=== PATIENT | female | born 1990 | race Two or more races ===

== ENCOUNTER 2025-07-02 23:08 | Emergency (ER) | payer BC, OTHER ==
[~2025-07-02] VITALS: Ht 157.5 cm; Wt 105.4 kg
[2025-07-03 00:15] LABS: Hematocrit 38.6 % (36.0-46.0); Hemoglobin 13.5 g/dL (12.2-16.2); Mean Corpuscular Hemoglobin 30.9 pg (28.0-32.0); Mean Corpuscular Volume 88.1 fL (80.0-100.0); Nucleated Red Blood Cells % 0.0 %
[2025-07-03 00:24] LABS: Chloride 103 mmol/L (98-107); Potassium 3.8 mmol/L (3.5-5.1); Sodium 138 mmol/L (136-145)
[2025-07-03 00:25] LABS: Anion Gap 11 (5-15); Calcium 9.4 mg/dL (8.7-10.4); Carbon Dioxide 24 mmol/L (20-31)
[2025-07-03 00:38] LABS: BUN/Creatinine Ratio 7.5 (10.0-20.0); Blood Urea Nitrogen < 5 mg/dL (9-23); Glucose 166 mg/dL (74-106)
--- NOTE | 2025-07-03 01:29 | DVH ---
OB ULTRASOUND <14 WEEKS: HISTORY: abd pain early TECHNIQUE: Multiple real-time grayscale sonographic images of the pelvis with duplex Doppler color f low, spectral and M-mode analysis. COMPARISON: US OB TRANS VAGINAL US on DOS: 07/03/25 FINDINGS: The uterus measures 8.5 x 7.2 x 4.3 cm The cervix is unremarkable Right ovary measures 3.4 x 1.9 x 2.6 cm with normal Doppler color flow. Left ovary measures 3.1 x 2.5 x 2.8 cm with normal Doppler color flow. Left ovarian cyst/ follicle me asuring 1.8 cm. IUP single fetus that is below accurate measurements of age with gestational sac measuring 0.71 cm. pole not yet seen. Yolk sac not seen. Silvia-gestational space: None. IMPRESSION: Gestational sac with no pole or yolk sac yet seen. Recommend correlation with beta-hCG and follow-up sonography as clinically indicated. No acute abnormality detected.
--- NOTE | 2025-07-03 02:11 | ED.PDOC ---
History of Present Illness HPI Comments 35 y/o F presents with spouse for c/c of left flank pain, with associated, for the past 2x days. Patient is 5x weeks . She endorses on sudden, unprovoked, and atraumatic onset of waning, constant pain. Denies any vomiting, diarrhea, constipation, or further associated symptoms. Chief Complaint: Flank Pain Time Seen by MD: 01:45 Reviewed Notes: Nurses Notes, Medications, Allergies Home Meds Active Scripts Cefdinir (Cefdinir) 300 Mg Cap, 1 CAP PO BID for 10 Days, #20 CAP Prov:KYLEE ANN MD 07/03/25 Information Source: Patient Mode of Arrival: Ambulatory Severity: Moderate Timing: Hours Duration: Since onset Prehospital treatment: None Past Medical History PAST MEDICAL HISTORY: Denies All Other Systems: Reviewed and Negative (Comprehensive review of systems are negative unless stated in HPI) Physical Exam General Appearance: Mild Distress, Obese HEENT: Normal ENT Inspection, Pharynx Normal, TMs Normal Neck: Full Range of Motion, Non-Tender, Normal, Normal Inspection Respiratory: Chest Non-Tender, Lungs Clear, No Accessory Muscle Use, No Respiratory Distress, Normal Breath Sounds Cardiovascular: No Edema, No JVD, No Murmur, No Gallop, Normal Peripheral Pulses, Regular Rate/Rhythm Breast Exam: Deferred Gastrointestinal: No Organomegaly, Non Tender, No Pulsatile Mass, Normal Bowel Sounds, Soft Genitalia: Deferred Pelvic: Deferred Rectal: Deferred Extremities: No calf tenderness, Normal capillary refill, Normal inspection, Normal range of motion, Non-tender, No pedal edema Musculoskeletal : Location: Left Extremity Location: Other (CVA) Apperance: Normal, Tenderness Neurologic: Alert, personal care service provider II-XII nml as Tested, No Motor Deficits, Normal Affect, Normal Mood, No Sensory Deficits Cerebellar Function: Normal Reflexes: Normal Skin: Dry, Normal Color, Warm Lymphatic: No Adenopathy Was a procedure done? Was a procedure done?: No Differential Dx Considerations may include: nephrolithiasis, pyelonephritis, cystitis, musculoskeletal pain, PID, ovarian cysts/torsion, among others X-Ray, Labs, Meds, VS Vital Signs Date Time Temp Pulse Resp B/P (MAP) Pulse Ox O2 Delivery O2 Flow Rate FiO2 07/02/25 23:20 100.1 127 20 119/60 97 100.1 Lab Test 07/03/25 03:00 07/02/25 23:57 Range/Units Urine Color Yellow Yellow Urine Clarity Clear Clear Urine pH 6.0 5.0-9.0 Urine Specific [place] 1.027 1.001-1.035 Urine Protein Trace H Negative Urine Ketones Trace Negative Urine Blood Negative Negative /uL Urine Nitrite Negative Negative Urine Bilirubin Negative Negative Urine Urobilinogen 2 H Negative mg/dL Urine Leukocyte Esterase Negative Negative /uL Urine RBC None seen 0 - 4 /hpf Urine Microscopic WBC 1 0-5 /HPF Urine Squamous Epithelial Cells Few <5 /hpf Urine Bacteria None seen None Seen /hpf Urine Mucus Few None Seen Urine Glucose Normal Normal mg/dL White Blood Count 18.7 H 4.4-10.8 10^3/uL Red Blood Count 4.39 4.0-5.20 10^6/uL Hemoglobin 13.5 12.2-16.2 g/dL Hematocrit 38.6 36.0-46.0 % Mean Corpuscular Volume 88.1 80.0-100.0 fL Mean Corpuscular Hemoglobin 30.9 28.0-32.0 pg Mean Corpuscular Hemoglobin Concent 35.1 32.0-36.0 g/dL Red Cell Distribution Width 13.1 11.8-14.3 % Platelet Count 330 140-450 10^3/uL Mean Platelet Volume 7.6 6.9-10.8 fL Neutrophils (%) (Auto) 83.5 H 37.0-80.0 % Lymphocytes (%) (Auto) 10.3 10.0-50.0 % Monocytes (%) (Auto) 5.4 0.0-12.0 % Eosinophils (%) (Auto) 0.4 0.0-7.0 % Basophils (%) (Auto) 0.4 0.0-2.0 % Neutrophils # (Auto) 15.6 H 1.6-8.6 10 ^3/uL Lymphocytes # (Auto) 1.9 0.4-5.4 10 ^3/uL Monocytes # (Auto) 1.0 0-1.3 10 ^3/uL Eosinophils # (Auto) 0.1 0-0.8 10 ^3/uL Basophils # (Auto) 0.1 0-0.2 10 ^3/uL Nucleated Red Blood Cells 0.0 % Sodium Level 138 136-145 mmol/L Potassium Level 3.8 3.5-5.1 mmol/L Chloride Level 103 98-107 mmol/L Carbon Dioxide Level 24 20-31 mmol/L Anion Gap 11 5-15 Blood Urea Nitrogen < 5 L 9-23 mg/dL Creatinine 0.67 0.550-1.02 mg/dL Glomerular Filtration Rate Calc 118 >90 mL/min BUN/Creatinine Ratio 7.5 L 10.0-20.0 Serum Glucose 166 H 74-106 mg/dL Calcium Level 9.4 8.7-10.4 mg/dL Beta HCG, Quantitative 3419.6 H 1.5-4.2 mIU/mL [place] [id number] Ph: [phone] DIAGNOSTIC IMAGING Diagnostic Imaging Report : [id number] Signed PATIENT: INGRID MEADE ACCT: [id number] UNIT: [id number] : 1990 LOC: ER ROOM / BED: / AGE / SEX: 35 / F ADM STATUS: REG ER SERVICE [id number] ORDERING PHYSICIAN: KYLEE ANN MD PROCEDURE(s): OB4US - OB ULTRASOUND COMP LESS 14WKS REASON: abd pain early ORDER NUMBER(s): [id number], ACCESSION NUMBER(s): [id number] OB ULTRASOUND <14 WEEKS: HISTORY: abd pain early TECHNIQUE: Multiple real-time grayscale sonographic images of the pelvis with duplex Doppler color flow, spectral and M-mode analysis. COMPARISON: US OB TRANS VAGINAL US on DOS: 07/03/25 FINDINGS: The uterus measures 8.5 x 7.2 x 4.3 cm The cervix is unremarkable Right ovary measures 3.4 x 1.9 x 2.6 cm with normal Doppler color flow. Left ovary measures 3.1 x 2.5 x 2.8 cm with normal Doppler color flow. Left ovarian cyst/ follicle measuring 1.8 cm. IUP single fetus that is below accurate measurements of age with gestational sac measuring 0.71 cm. pole not yet seen. Yolk sac not seen. Silvia-gestational space: None. IMPRESSION: Gestational sac with no pole or yolk sac yet seen. Recommend correlation with beta-hCG and follow-up sonography as clinically indicated. No acute abnormality detected. ATED BY: RAS RAM MD DICTATED DATE/TIME: 07/03/25125 SIGNED BY: RAS RAM MD SIGNED DATE/TIME: 07/03/25125 CC: Time of 1ST Reevaluation: 02:15 Reevaluation 1ST: Unchanged Patient Education/Counseling: Diagnosis, Treatment, Need For Follow Up Family Education/Counseling: Diagnosis, Treatment, Need For Follow Up SEPSIS Sepsis Screen Date sepsis recognized/suspect: Jul 02, 2025 Time Sepsis recognized/suspect: 2321 Recent Procedure: No On Antibiotic Therapy: No Respiratory Rate >20: No Heart Rate >90: No Temp<36 C (96.8 F) or >38.3 C: No SBP <90 or MAP <65 mmHG: No New Acute Mental Status Change: No Is the patient on CPAP, BIPAP,: No Physician Orders Ob Ultrasound Comp Less 14wks (07/03/25 00:56) Ob Trans Vaginal Us (07/03/25 ) Vital Signs Date Time Temp Pulse Resp B/P (MAP) Pulse Ox O2 Delivery O2 Flow Rate FiO2 07/02/25 23:20 100.1 127 20 119/60 97 100.1 Laboratory Tests Test 07/02/25 23:57 White Blood Count 18.7 10^3/uL (4.4-10.8) H Departure 1 Departure Time of Disposition: 04:15 Impression: Primary Impression: Left flank pain Additional Impression: Abdominal pain in early Disposition: 01 HOME / SELF CARE / HOMELESS Condition: Stable e-Prescriptions Cefdinir (Cefdinir) 300 Mg Cap 1 CAP PO BID for 10 Days, #20 CAP Prov: KYLEE ANN MD 07/03/25 Discharged With: Self Critical Care Note Critical Care Time?: No Stability Stability form required: No Heart Score Heart Score: Heart Score Response (Comments) Value History N/A 0 EKG N/A 0 Age N/A 0 Risk Factors N/A 0 Troponin N/A 0 Total 0 I personally scribed for KYLEE ANN MD ([email or web address]) on 07/03/25 at 02:11. Electronically submitted by Arden Kimble ([email or web address]). KYLEE ANN MD Jul 03, 2025 02:11
[2025-07-03 04:19] LABS: Urine Protein, UAD TRACE (Negative)
[2025-07-03] MEDS ORDERED: CEFD300C2 PO (05:08)
[2025-07-03] MEDS ORDERED: cefTRIAXone W LIDOCAINE 1 GM IM IM ONE (05:15)
[2025-07-03] MEDS: cefTRIAXone SOD 1,000 MG VL IM ONE (06:19)
[2025-07-03 06:26] VITALS: BP 143/87; PULSE 105; RESP 18; TEMP 98.7; O2SAT 96
== END 2025-07-03 06:26 | disposition home or self-care (01) ==
LOC: ER 23:08
DX: O26.891 Other specified pregnancy related conditions, first trimester (principal); R10.9 Unspecified abdominal pain; Z3A.01 Less than 8 weeks gestation of pregnancy
CPT/HCPCS: 36415; 76801; 76817; 80048; 81001; 84702; 85025; 96372; 99285; J0696

== ENCOUNTER 2025-09-15 14:00 | Emergency (ER) | payer BC ==
[~2025-09-15] VITALS: Ht 157.5 cm; Wt 110.6 kg
[~2025-09-15 14:00] MED LIST: CEFD300C2 PO
--- NOTE | 2025-09-15 14:45 | ED.PDOC ---
ANALYSIS EVALUATOR HPI Comments 45-year-old female with pmhx of gestational DM and HTN, presents to the ED for chief complaint of vaginal bleeding that started today. Patient reports she is 16 weeks gestation with the ob gyn history of and a miscarriage earlier this year. Patient's last menstrual cycle was on 06/07/2025. Patient states that 2 day while she went to the restroom, she was expelling clumps of blood and states that she bled through her pants multiple times. Chief Complaint: Time Seen by MD: 14:39 Reviewed Notes: Nurses Notes, Medications, Allergies Allergies: Coded Allergies: NO KNOWN ALLERGIES (Unverified , 09/15/25) Home Meds Active Scripts Cefdinir (Cefdinir) 300 Mg Cap, 1 CAP PO BID for 10 Days, #20 CAP Prov:KYLEE ANN MD 07/03/25 Information Source: Patient Mode of Arrival: Ambulatory Timing: Hours Severity: Moderate Bleeding Quality: Bright Red, Clotted, Products of Conception Onset Of Mass/Bleeding: Spontaneous Sexual Activity: Last Consensual [place]: Unknown Control: None History of: Current Associated Signs and Symptoms: Vaginal Bleeding Past Medical History PAST MEDICAL HISTORY: Denies [employer]CHOOL [employer]IA [employer]IST History: Therapeutic Family History Family History: Reviewed,noncontributory to illness, No family hx of Cancer, No family hx of DM, No family hx of Heart kelli, No family hx of HTN, No family hx ofKidney kelli, No family hx of Liver kelli, No family hx of Lung kelli, No family hx of Stroke Social History Smoker: Non-Smoker Alcohol: Denies ETOH Use Drugs: Denies Drug Use Lives In: Home Constitutional: denies: chills, diaphoresis, fatigue, fever, malaise, sweats, weakness, others EENTM: denies: blurred vision, double vision, ear bleeding, ear discharge, ear drainage, ear pain, ear ringing, eye pain, eye redness, hearing loss, mouth pain, mouth swelling, nasal discharge, nose bleeding, nose congestion, nose pain, photophobia, tearing, throat pain, throat swelling, voice changes, others Respiratory: denies: cough, hemoptysis, orthopnea, SOB at rest, shortness of breath, SOB with excertion, stridor, wheezing, others Cardiovascular: denies: chest pain, dizzy spells, diaphoresis, Dyspnea on exertion, edema, irregular heart beat, left arm pain, lightheadedness, palpitations, PND, syncope, others Gastrointestinal: denies: abdomen distended, abdominal pain, blood streaked bowels, constipated, diarrhea, dysphagia, difficulty swallowing, hematemesis, melena, nausea, poor appetite, poor fluid intake, rectal bleeding, rectal pain, vomiting, others Genitourinary: reports: abnormal vagina bleeding; denies: burning, dyspareunia, dysuria, flank pain, frequency, hematuria, incontinence, pain, , vagina discharge, urgency, others Neurological: denies: dizziness, fainting, headache, left sided numbness, left sided weakness, numbness, paresthesia, pre-existing deficit, right sided numbness, right sided weakness, seizure, speech problems, tingling, tremors, weakness, others Musculoskeletal: denies: back pain, gout, joint pain, joint swelling, muscle pain, muscle stiffness, neck pain, others Integumetry: denies: bruises, change in color, change in hair/nails, dryness, laceration, lesions, lumps, rash, wounds, others Allergic/Immunocompromised: denies: Difficulty Healing, Frequent Infections, Hives, Itching, others Hematologic/Lymphatic: denies: anemia, blood clots, easy bleeding, easy bruising, swollen glands, others Endocrine: denies: excessive hunger, excessive sweating, excessive thirst, excessive urination, flushing, intolerance to cold, intolerance to heat, unexplained weight gain, unexplained weight loss, others Psychiatric: denies: anxiety, bipolar disorder, depression, hopeless, panic disorder, schizophrenia, sleepless, suicidal, others All Other Systems: Reviewed and Negative Physical Exam General Appearance: Moderate Distress HEENT: Normal ENT Inspection, Pharynx Normal, TMs Normal Neck: Full Range of Motion, Non-Tender, Normal, Normal Inspection Respiratory: Chest Non-Tender, Lungs Clear, No Accessory Muscle Use, No Respiratory Distress, Normal Breath Sounds Cardiovascular: No Edema, No JVD, No Murmur, No Gallop, Normal Peripheral Pulses, Regular Rate/Rhythm Breast Exam: Deferred Gastrointestinal: No Organomegaly, Non Tender, No Pulsatile Mass, Normal Bowel Sounds, Soft Genitalia: Deferred Pelvic: Deferred Rectal: Deferred Extremities: No calf tenderness, Normal capillary refill, Normal inspection, Normal range of motion, Non-tender, No pedal edema Musculoskeletal : Apperance: Normal Neurologic: Alert, bottom pounder cement shoes II-XII nml as Tested, No Motor Deficits, Normal Affect, Normal Mood, No Sensory Deficits Cerebellar Function: Normal Reflexes: Normal Skin: Dry, Normal Color, Warm Peripheral Pulses: 3+ Radial (R), 3+ Radial (L) Lymphatic: No Adenopathy Was a procedure done? Was a procedure done?: No Differential Diagnosis ([employer]IST) Vaginal Bleeding: - Complete, - Incomplete, - Inevitable, - Missed, - Threatened, Abruptio Placentae, Blood Loss Anemia, Cervicitis, Dysmenorrhea, Ectopic X-Ray, Labs, Meds, VS Vital Signs Date Time Temp Pulse Resp B/P (MAP) Pulse Ox O2 Delivery O2 Flow Rate FiO2 09/15/25 16:25 98.4 94 16 111/61 (78) 99 98.4 09/15/25 14:08 98.3 104 16 133/78 97 98.3 Lab Test 09/15/25 15:31 09/15/25 15:05 Range/Units Urine Color Yellow Yellow Urine Clarity Clear Clear Urine pH 6.0 5.0-9.0 Urine Specific [place] 1.028 1.001-1.035 Urine Protein Trace H Negative Urine Ketones 2+ H Negative Urine Blood Trace H Negative /uL Urine Nitrite Negative Negative Urine Bilirubin Negative Negative Urine Urobilinogen Normal Negative mg/dL Urine Leukocyte Esterase Negative Negative /uL Urine RBC 1 0 - 4 /hpf Urine Microscopic WBC 1 0-5 /HPF Urine Squamous Epithelial Cells Few <5 /hpf Urine Bacteria Few H None Seen /hpf Urine Mucus Few None Seen Urine Glucose Normal Normal mg/dL Beta HCG, Quantitative 32018.3 H 1.5-4.2 mIU/mL Patient alert. Vitals stable. She is . Answering all questions. No sign of any distress. Ultrasound does reveal normal . Told to take her vitamins. Explained to the patient. Was told to follow up with her primary care physician. Was told to come back if there is any problem. Time of 1ST Reevaluation: 14:45 Reevaluation 1ST: Unchanged Patient Education/Counseling: Diagnosis, Treatment, Prognosis Family Education/Counseling: No Family Present Departure 1 Departure Time of Disposition: 16:30 Impression: Primary Impression: Normal Qualified Codes: Z34.90 - Encounter for supervision of normal , unspecified, unspecified trimester Disposition: 01 HOME / SELF CARE / HOMELESS Condition: Good Discharged With: Self Critical Care Note Critical Care Time?: No Stability Stability form required: No Heart Score Heart Score: Heart Score Response (Comments) Value History N/A 0 EKG N/A 0 Age N/A 0 Risk Factors N/A 0 Troponin N/A 0 Total 0 I personally scribed for CROW JUNG MD ([email or web address]) on 09/15/25 at 14:45. Electronically submitted by Linda Flor ([facility]). CROW JUNG MD Sep 15, 2025 14:45
[2025-09-15 15:57] LABS: Urine Protein, UAD TRACE (Negative)
--- NOTE | 2025-09-15 16:00 | DVH ---
LIMITED OB ULTRASOUND > 14 WKS: HISTORY: bleeding TECHNIQUE: Multiple real-time grayscale images of the gravid uterus with duplex Doppler color flow and M-mode spectral analysis. FINDINGS: IUP single live fetus at 15 weeks and 5 days based on composite averages of the BPD, head circumference, abdominal circumference and femur length Estimated weight 128 g heart rate 163 beats per minute LONG measures 3.2 cm Cervix 3.4 cm Cephalic presentation anterior Placenta without previa or abruption. IMPRESSION: 1. IUP single live fetus at 15 weeks and 5 days AUA corresponding to an JOSEPH of 03/04/2026
[2025-09-15 16:25] VITALS: BP 111/61; PULSE 94; RESP 16; TEMP 98.4; O2SAT 99
== END 2025-09-15 16:58 | disposition home or self-care (01) ==
LOC: ER 14:00
DX: Z34.90 Encounter for supervision of normal pregnancy, unspecified, unspecified trimester (principal); Z3A.16 16 weeks gestation of pregnancy
CPT/HCPCS: 36415; 76805; 81001; 84702